=== PATIENT | male | born 1980 | race Caucasian/White ===

== ENCOUNTER 2025-07-13 20:25 | Emergency (ER) | payer SELFPAY ==
[2025-07-13] MEDS: Fluorescein 1 MG Ophth Strip EYERT ONE (21:34)
== END 2025-07-13 21:30 | disposition home or self-care (01) ==
LOC: JD.ED 20:25
DX: T15.91XA Foreign body on external eye, part unspecified, right eye, initial encounter (principal); W44.8XXA Other foreign body entering into or through a natural orifice, initial encounter; Y93.89 Activity, other specified
CPT/HCPCS: 65205; 99283-25